=== PATIENT | female | born 1980 ===

== ENCOUNTER 2017-04-23 21:15 | Emergency (ER) | payer SELFPAY ==
[~2017-04-23 21:15] MED LIST: ISOVUE-370 76%-LOCM 1 ML ONE
[2017-04-23 21:57] LABS: #Basophils 0.1 thou/uL (0.0-0.2); #Eosinphils 0.2 thou/uL (0.0-0.7); #Lymphocytes 2.8 thou/uL (1.20-3.40); #Monocytes 0.8 thou/uL (0.11-0.59); #Neutrophils 7.2 thou/uL (1.40-6.50); %Basophils 0.7 % (0.0-1.0); %Eosinophils 2.2 % (0.0-10.0); %Lymphocytes 25.4 % (21.0-51.0); %Monocytes 7.1 % (0.0-10.0); %Neutrophils 64.6 % (42.0-75.0); Hemoglobin 12.9 g/dL (12.0-16.0); Mean Corpuscular HGB CONC 34.7 g/dL (32.0-36.0); Mean Corpuscular Hemoglobin 32.3 pg (27.0-31.0); Mean Corpuscular Volume 93.1 fl (81.0-99.0); Mean Platelet Volume 7.4 fL (7.4-10.4); Platelet Count 423 thou/uL (130-400); RBC Distribution Width 11.9 % (11.5-14.5); Red Blood Cell (RBC) Count 4.01 mill/uL (4.20-5.40); White Blood Cell (WBC) Count 11.2 thou/uL (4.8-10.8)
[2017-04-23] MEDS ORDERED: Morphine 4 MG/ML Carpuject ONE (22:05)
[2017-04-23] MEDS ORDERED: Ondansetron HCl/PF 4 MG/2 ML Vial ONE (22:06)
[2017-04-23 22:11] LABS: ALT (SGPT) 13 U/L (8-55); AST (SGOT) 11 U/L (5-34); Alkaline Phosphatase 102 U/L (40-150); Anion Gap 14 mmol/L (10-20); BUN (Urea Nitrogen) 15 mg/dL (7.0-18.7); Bilirubin, Total 0.3 mg/dL (0.2-1.2); Calc. Creatinine Clearance 0 mL/min (70-130); Calcium 9.8 mg/dL (7.8-10.44); Carbon Dioxide 24 mmol/L (22-29); Chloride 99 mmol/L (98-107); Estimated GFR-MDRD 77; Globulin 3.6 g/dL (2.4-3.5); Glucose 161 mg/dL (70-105); Lipase 47 U/L (8-78); Potassium 4.1 mmol/L (3.5-5.1); Protein, Total 7.6 g/dL (6.0-8.3); Sodium 133 mmol/L (136-145)
[2017-04-23 22:36] LABS: Bilirubin Negative (Negative); Blood, Urine Large (Negative); Clarity CLOUDY (Clear); Glucose, Urine (Dipstick) Negative (Negative); Leukocyte Large (Negative); Nitrite Negative (Negative); Protein, Urine (Dipstick) 100 mg/dL (Neg-Trace); Specific Gravity, Urine 1.011 (1.002-1.036); Urobilinogen 0.2 mg/dL (0.2-1.0)
[2017-04-23 22:37] LABS: Bacteria/HPF 1+ HPF (None Seen); Hyaline Casts/LPF 0-3 HYALINE CAST LPF (0-3 Hyaline); Squamous Epithelial 0-3 HPF (0-3)
[2017-04-23 22:38] LABS: Pregnancy Test - Urine (BHCG) Negative (Negative); Pregu Control Background? CLEAR/WHITE (CLR/WHITE); Pregu Control Bar Appear? YES (CONTROL BAR); Specific Gravity 1.011 (1.002-1.036)
--- NOTE | 2017-04-23 23:13 | CT ---
CT ABDOMEN AND PELVIS WITH CONTRAST 04/23/17 HISTORY: Abdominal pain COMPARISON: None. FINDINGS: Lung bases are relatively clear with minimal atelectasis. No pneumothorax. No pericardial effusion. Prior cholecystectomy. Liver is normal. There are multiple hypodensities of the cervix possibly Nabothian cysts. Right ovarian hypodensity is present. No dilated loops of large or small bowel. The appendix is visualized and is normal. The aortoiliac contour is normal. No adenopathy. The pancre as is normal as well as the spleen. No hydronephrosis. No renal calculus. There is abnormal hyperenhancement and thickening of the mucosa of the right urete r. No ureteral calculus is appreciated. There is low grade inflammatory stranding along the mid and d istal right ureter. IMPRESSION: 1. Abnormal hyperenhancement of the mucosa of the mid and distal right ureter without hydronephr osis. There is associated mild periureteral stranding. This may be sequela of a recently passed stone versus infectious ureteritis. 2. No hydronephrosis. 3. No calculus is seen within the renal collecting system or the ureters. 4. Hypodensity of the right ovary likely a cyst. 5. Numerous hypodensities in the cervix, likely Nabothian cysts. 6. Normal appendix. POS: [facility]
[2017-04-23] MEDS ORDERED: Ketorolac Tromethamine 30 MG/ML VIAL ONE (23:31)
== END 2017-04-23 23:58 | disposition home or self-care (01) ==
LOC: ERS 21:15
DX: N39.0 Urinary tract infection, site not specified (principal); E11.9 Type 2 diabetes mellitus without complications; I10 Essential (primary) hypertension; F17.200 Nicotine dependence, unspecified, uncomplicated
CPT/HCPCS: 74177; 80053; 81003; 81015; 81025; 83690; 85025; 96361; 96374; 96375; J0696; J1885; J2270; J2405